=== PATIENT | male | born 2005 | race American Indian/Alaskan Native ===

== ENCOUNTER 2023-03-16 20:04 | Emergency (ER) | payer BC | END 2023-03-16 20:51 | disposition home or self-care (01) | LOC: FB.ED 20:04 | DX: S05.01XA Injury of conjunctiva and corneal abrasion without foreign body, right eye, initial encounter (principal); W22.09XA Striking against other stationary object, initial encounter; Y93.H2 Activity, gardening and landscaping | CPT/HCPCS: 99283 ==